=== PATIENT | male | born 1955 | race African-American/Black ===

== ENCOUNTER 2016-12-09 16:24 | Emergency (ER) | payer BC ==
[2016-12-09 16:35] VITALS: BMI 30.4
--- NOTE | 2016-12-09 16:40 | PDOC ---
History of Present Illness - General History Source: Patient, EMS Exam Limitations: No Limitations - History of Present Illness Initial Comments: 12/09/16 16:50 The patient is a 61 year old male, with a significant past medical history of hyperlipidemia and epilepsy (on Dilantin, compliant w/ medication - patient reports last dose was this morning), who presents to the emergency department via EMS for evaluation s/p a seizure earlier this afternoon. The patient states that he was in his usual state of health this morning. 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 EMS was initiated after the patient had experienced a seizure while at work. EMS reports that he hit his head during the seizure and was notably postictal en route to the ED. The patient reports feeling lightheaded currently in the ED, which the patient states is typical for him after seizures. The patient reports that his last seizure before today was approximately 4-5 months ago. The patient denies chest pain or shortness of breath. The patient denies fever, chills, headache, cough, nausea, vomiting or any recent illnesses. Allergies: None reported. Past Surgical History: None reported. PCP: Dr. Aakash Martinez <Marsha Hodges - Last Filed: 12/09/16 19:50> - General History Source: Patient Exam Limitations: No Limitations <Ángel Garces - Last Filed: 12/09/16 20:30> - General Chief Complaint: Seizure Stated Complaint: SEIZURE Time Seen by Provider: 12/09/16 16:26 Past History <Marsha Hodges - Last Filed: 12/09/16 19:50> <Ángel Garces - Last Filed: 12/09/16 20:30> - Past Medical History Allergies/Adverse Reactions: Allergies Allergy/AdvReac Type Severity Reaction Status Date / Time No Known Allergies Allergy Verified 12/09/16 16:34 Home Medications: Ambulatory Orders Phenytoin Na Extended [Dilantin -] 300 mg PO BID 12/09/16 Review of Systems - Review of Systems Able to Perform ROS?: Yes Comments:: 12/09/16 16:43 GENERAL/CONSTITUTIONAL: No fever or chills. No weakness. HEAD, EYES, EARS, NOSE AND THROAT: No change in vision. No ear pain or discharge. No sore throat. CARDIOVASCULAR: +Lightheaded. No chest pain or shortness of breath. RESPIRATORY: No cough, wheezing, or hemoptysis. GASTROINTESTINAL: No nausea, vomiting, diarrhea or constipation. GENITOURINARY: No dysuria, frequency, or change in urination. MUSCULOSKELETAL: No joint or muscle swelling or pain. No neck or back pain. SKIN: No rash. NEUROLOGIC: +Seizure. No headache, vertigo or change in strength/sensation. ENDOCRINE: No increased thirst. No abnormal weight change. HEMATOLOGIC/LYMPHATIC: No anemia, easy bleeding, or history of blood clots. ALLERGIC/IMMUNOLOGIC: No hives or skin allergy. <Marsha Hodges - Last Filed: 12/09/16 19:50> *Physical Exam - Vital Signs Last Vital Signs Temp Pulse Resp BP Pulse Ox 98.7 F 82 16 180/102 100 12/09/16 16:31 12/09/16 16:31 12/09/16 16:31 12/09/16 16:31 12/09/16 16:31 - Physical Exam Comments: 12/09/16 16:42 GENERAL: Awake, alert, and fully oriented, in no acute distress. HEAD: Mild abrasion, 3cm x 3cm hematoma to the right side of the head EYES: PERRLA, EOMI, sclera anicteric, conjunctiva clear. ENT: Auricles normal inspection, hearing grossly normal, nares patent, oropharynx clear without exudates. Moist mucosa. NECK: Normal ROM, supple, no lymphadenopathy, JVD, or masses. LUNGS: Breath sounds equal, clear to auscultation bilaterally. No wheezes, and no crackles. HEART: Regular rate and rhythm, normal S1 and S2, no murmurs, rubs or gallops. ABDOMEN: Soft, nontender, normoactive bowel sounds. No guarding, no rebound. No masses. EXTREMITIES: Normal range of motion, no edema. No clubbing or cyanosis. No cords , erythema, or tenderness. SKIN: Warm, dry, normal turgor, no rashes or lesions noted. <Marsha Hodges - Last Filed: 12/09/16 19:50> - Physical Exam Comments: 12/09/16 16:33 NEURO: CN II-XII intact. 5/5 strength upper and lower extremities Sensation intact throughout. AAOx3. No pronator drift Speech normal. No dysmetria. <Ángel Garces - Last Filed: 12/09/16 20:30> Heart Score/ECG Review #1 ECG reviewed & interpreted by me at: 16:40 12/09/16 16:40 NSR 62, no std/milan, normal axis, normal intervals, T wave flat aVL, QTC 428 msec , no brugada, no HOCM, no WPW <Ángel Garces - Last Filed: 12/09/16 20:30> ED Treatment Course - LABORATORY CBC & Chemistry Diagram: 12/09/16 16:55 12/09/16 16:55 <Marsha Hodges - Last Filed: 12/09/16 19:50> - LABORATORY CBC & Chemistry Diagram: 12/09/16 16:55 12/09/16 16:55 <Ángel Garces - Last Filed: 12/09/16 20:30> Medical Decision Making - Medical Decision Making 12/09/16 19:22 EXAM: CT/HEAD CT WITHOUT CONTRAST Reviewed By: Dr. Diya Hawthorne IMPRESSION: No evidence of a focal intracranial lesion or hemorrhage is seen. Mild soft tissue swelling of the scalp over the right side of the frontal bone, superiorly as well as over the left posterior/occipital junction. Called placed to [facility] at 19:35. Referred to answering service, awaiting callback. Dr. Brock returned call at 19 :50, case discussed. <Marsha Hodges - Last Filed: 12/09/16 19:50> - Medical Decision Making 12/09/16 16:37 A portion of this note was written by my scribe, under my supervision. Vital Signs Temp Pulse Resp BP Pulse Ox 98.7 F 82 16 180/102 100 12/09/16 16:31 12/09/16 16:31 12/09/16 16:31 12/09/16 16:31 12/09/16 16:31 61 year old male with history of HLD, epilepsy presents with likely seizure. The patient reports that he takes 200 mg dilantin TID and reports adherence. States that his medications are usually taken care of by DR. Aakash Martinez, his PMD. Reported feeling well this morning. 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 A bystander had called EMS. The patient reported feeling foggy and lightheaded, like his postictal period. EMS reports that he was notably postictal. Pt sustained a hematoma of his head from the fall but denies headache, nausea, vomiting. He is neurovascularly intact. This is likely secondary to his epilepsy. Will check for secondary causes. Head CT for the head injury. Labs. Observe. 12/09/16 20:25 CBC, BMP 12/09/16 16:55 12/09/16 16:55 CMP Sodium 145 mmol/L (136-145) 12/09/16 16:55 Potassium 3.9 mmol/L (3.5-5.1) 12/09/16 16:55 Chloride 109 mmol/L (98-107) H 12/09/16 16:55 Carbon Dioxide 25 mmol/L (21-32) 12/09/16 16:55 Anion Gap 11 (8-16) 12/09/16 16:55 BUN 19 mg/dL (7-18) H 12/09/16 16:55 Creatinine 1.4 mg/dL (0.7-1.3) H 12/09/16 16:55 Creat Clearance w eGFR 51.52 (>60) 12/09/16 16:55 Random Glucose 86 mg/dL (74-106) 12/09/16 16:55 Calcium 8.6 mg/dL (8.5-10.1) 12/09/16 16:55 Magnesium 1.9 mg/dL (1.8-2.4) 12/09/16 16:55 Total Bilirubin 0.2 mg/dL (0.2-1.0) 12/09/16 16:55 AST 17 U/L (15-37) 12/09/16 16:55 ALT 22 U/L (12-78) 12/09/16 16:55 Alkaline Phosphatase 87 U/L (45-117) 12/09/16 16:55 Total Protein 7.3 g/dl (6.4-8.2) 12/09/16 16:55 Albumin 3.7 g/dl (3.4-5.0) 12/09/16 16:[address] reviewed. No acute findings. The patient has been observed and feeling quite well. He is subtherapeutic on his dilantin. Case discussed with Dr. Brock. Requests that I initiate 600 mg IV fosphenytoin, maintain his oral medication, and have him follow up in her office. Pt agrees with plan. he is safe for discharge. I discussed the physical exam findings, ancillary test results and final diagnoses with the patient. I answered all of the patient's questions. The patient was satisfied with the care received and felt comfortable with the discharge plan and treatment plan. The patient will call their primary care physician within 24 hours to arrange follow-up and will return to the Emergency Department with any new, persistant or worsening symptoms. <Ángel Garces - Last Filed: 12/09/16 20:30> *DC/Admit/Observation/Transfer - Attestations Scribe Attestion: 12/09/16 16:42 Documentation prepared by Marsha Hodges, acting as medical laboratory assistant for Ángel Garces MD. <Marsha Hodges - Last Filed: 12/09/16 19:50> - Discharge Dispostion Admit: No <Ángel Garces - Last Filed: 12/09/16 20:30> Diagnosis at time of Disposition: Seizure - Discharge Dispostion Disposition: HOME Condition at time of disposition: Stable - Referrals Referrals: Aakash Martinez [Primary Care Provider] - Brittany Brock MD [Staff Physician] - - Patient Instructions Printed Discharge Instructions: DI for Seizure Disorder -- Adult Additional Instructions: Please continue your seizure medications. Make an appointment with a neurologist.
[2016-12-09 17:24] LABS: BASOPHIL 0.6 % (0-2.0); EOSINOPHIL 1.7 % (0-4.5); MCH 23.7 pg (25.7-33.7); MCHC 32.5 g/dl (32.0-35.9); MEAN PLT VOLUME 10.1 fl (7.5-11.1); NEUTROPHILS 77.9 % (42.8-82.8); PLATELET COUNT 182 K/MM3 (134-434); WHITE BLOOD COUNT 8.7 K/mm3 (4.0-10.0)
[2016-12-09 18:01] LABS: ALBUMIN 3.7 g/dl (3.4-5.0); BILIRUBIN,TOTAL 0.2 mg/dL (0.2-1.0); CALCIUM 8.6 mg/dL (8.5-10.1); CREATININE 1.4 mg/dL (0.7-1.3); MAGNESIUM 1.9 mg/dL (1.8-2.4); TOT PROT 7.3 g/dl (6.4-8.2)
[2016-12-09] MEDS ORDERED: FOSPHENYTOIN SODIUM 100 MG/2 ML VIAL IVPUSH ONE (19:54)
[2016-12-09] MEDS ORDERED: FOSPHENYTOIN SODIUM 100 MG/2 ML VIAL ONE (20:01)
[2016-12-09] MEDS ORDERED: IBUPROFEN 600 MG TABLET (FP) PO ONE ×3 (22:00→22:39)
[2016-12-09 22:46] VITALS: BP 155/79; PULSE 60; TEMP 98.1
--- NOTE | 2016-12-10 11:49 | EKG ---
Test Reason : Blood Pressure : / mmHG Vent. Rate : 062 BPM Atrial Rate : 062 BPM P-R Int : 166 ms QRS Dur : 090 ms QT Int : 422 ms P-R-T Axes : 066 005 064 degrees QTc Int : 428 ms NORMAL SINUS RHYTHM POSSIBLE LEFT ATRIAL ENLARGEMENT NO PREVIOUS ECGS AVAILABLE Confirmed by BRE VELEZ MD ([id number]) on 12/10/2016 11:49:10 AM Referred By: Confirmed By:BRE VELEZ MD
== END 2016-12-09 22:45 | disposition home or self-care (01) ==
LOC: JER 16:24
PROC: 3E033GC Introduction of Other Therapeutic Substance into Peripheral Vein, Percutaneous Approach (ICD-10-PCS; principal; 2016-12-09)
DX: G40.909 Epilepsy, unspecified, not intractable, without status epilepticus (principal); E78.5 Hyperlipidemia, unspecified
CPT/HCPCS: 36415; 70450-TC; 80053; 80185; 83735; 85025; 93005; 93010; 99283-25